=== PATIENT | male | born 1960 | race Caucasian/White ===

== ENCOUNTER 2017-03-17 13:50 | Emergency (ER) | payer BC ==
[2017-03-17] MEDS: TETRACAINE 0.5% 4 ML OPH BOTH EYES (15:53)
[2017-03-17] MEDS: FLUORESCEIN STRIP BOTH EYES (15:53)
== END 2017-03-17 16:12 | disposition home or self-care (01) ==
LOC: FTE 13:50
DX: H10.9 Unspecified conjunctivitis (principal); F17.210 Nicotine dependence, cigarettes, uncomplicated
CPT/HCPCS: 99283

== ENCOUNTER 2018-02-03 08:03 | Emergency (ER) | payer BC ==
[2018-02-03] MEDS: HYDROCODONE/APAP (5/325) TAB PO (08:33)
[2018-02-03] MEDS: KETOROLAC 30 MG INJ IM (08:33)
== END 2018-02-03 09:33 | disposition home or self-care (01) ==
LOC: FTE 08:03
DX: M54.5 Low back pain (principal); F17.210 Nicotine dependence, cigarettes, uncomplicated
CPT/HCPCS: 72100; 93971; 96372; 99285-25

== ENCOUNTER 2018-02-07 00:55 | Emergency (ER) | payer BC ==
[2018-02-07] MEDS: morphine 4 MG/ML VIAL IM (01:52)
[2018-02-07] MEDS: KETOROLAC 30 MG INJ IM (03:02)
== END 2018-02-07 04:55 | disposition home or self-care (01) ==
LOC: FTE 00:55
DX: M79.605 Pain in left leg (principal); M54.5 Low back pain; F17.210 Nicotine dependence, cigarettes, uncomplicated
CPT/HCPCS: 72131; 73610; 96372; 99285-25

== ENCOUNTER 2018-05-09 20:09 | Emergency (ER) | payer BC ==
[2018-05-10] MEDS ORDERED: LIDOCAINE 1%/EPI (MDV) 50 ML INJ INJ (00:30)
[2018-05-10] MEDS: HYDROCODONE/APAP (10/325) TAB PO (00:41)
[2018-05-10] MEDS: DIPHTH/TET/ACEL PERTUSS (ADULT) 0.5 ML VIAL IM* (00:42)
[2018-05-10] MEDS: LIDOCAINE 1%/EPI 30 ML INJ INJ (00:47)
[2018-05-10] MEDS: BACITRACIN 0.9 GM OINT TOP (01:37)
== END 2018-05-10 01:43 | disposition home or self-care (01) ==
LOC: FTE 20:09
DX: S01.01XA Laceration without foreign body of scalp, initial encounter (principal); S09.90XA Unspecified injury of head, initial encounter; W22.8XXA Striking against or struck by other objects, initial encounter; Y92.89 Other specified places as the place of occurrence of the external cause; Z23 Encounter for immunization; Z87.891 Personal history of nicotine dependence
CPT/HCPCS: 12002; 70450; 90471; 90715; 99284-25

== ENCOUNTER 2018-05-12 04:26 | Emergency (ER) | payer BC | END 2018-05-12 07:58 | disposition home or self-care (01) | LOC: FTE 04:26 | DX: Z48.01 Encounter for change or removal of surgical wound dressing (principal) | CPT/HCPCS: 99281 ==

== ENCOUNTER 2018-05-17 04:17 | Emergency (ER) | payer BC | END 2018-05-17 06:21 | disposition home or self-care (01) | LOC: FTE 04:17 | DX: Z48.02 Encounter for removal of sutures (principal) | CPT/HCPCS: 99281 ==